=== PATIENT | female | born 1970 | race Caucasian/White ===

== ENCOUNTER → 2016-09-07 | Outpatient (CLI) | payer BC ==
[~2016-09-07] MED LIST: BCPILLS PO; CALC500C3 PO; FLUC150T PO; OXYC-57 PO
== END | disposition home or self-care (01) ==
LOC: C.PAPS 08:14
PROVIDERS: ATTEND Obstetrics & Gynecology
DX: Z01.419 Encounter for gynecological examination (general) (routine) without abnormal findings (principal)

== ENCOUNTER → 2018-03-25 | Outpatient (CLI) | payer OTHER ==
[~2018-03-25] MED LIST changes: -OXYC-57 PO
--- NOTE | 2018-03-25 15:20 | MAMMOGRAPHY REPORT ---
BILATERAL DIGITAL SCREENING MAMMOGRAM TOMOSYNTHESIS WITH CAD: 03/25/2018 CLINICAL HISTORY: Routine screening. TECHNIQUE: The study was acquired using full field digital technology and interpreted from soft copy. Breast tomosynthesis in addition to standard 2D mammography was performed. Current study was also ev aluated with a Computer Aided Detection (CAD) system. COMPARISON: Comparison is made to exams dated: 01/13/2016 mammogram, 10/18/2014 mammogram, and 04/14/20 12 mammogram - [facility]. BREAST COMPOSITION: The tissue of both breasts is extremely dense, which lowers the sensitivity of ma mmography. FINDINGS: The parenchymal pattern is unchanged. No developing mass, architectural distortion or cluster of susp icious microcalcifications is seen in either breast. IMPRESSION: ACR BI-RADS CATEGORY 2: BENIGN There is no mammographic evidence of malignancy. A 1 year screening mammogram is recommended.( [id number]) The patient will receive written notification of the results. Some breast cancers are not detected with mammography. A negative mammographic report should not rosalinda y biopsy if a clinically suggestive mass is present. Ramya Hicks M.D. ay/:03/25/2018 14:38:59 Racing Driver: RT Davy(Leonel)(M), [facility] letter sent: Normal 1/2 BI-RADS Code: ACR BI-RADS Category 2: Benign
== END | disposition home or self-care (01) ==
LOC: C.MAMM 13:50
PROVIDERS: ATTEND Internal Medicine
DX: Z12.31 Encounter for screening mammogram for malignant neoplasm of breast (principal)

== ENCOUNTER 2020-02-23 01:02 | Inpatient (IN) ==
[2020-02-23 01:46] LABS: Basophils # (auto) 0.03 K/uL (0-0.2); Basophils % (auto) 0.5 %; Eosinophils # (auto) 0.07 K/uL (0-0.5); Eosinophils % (auto) 1.1 %; Hematocrit (blood only) 34.7 % (37-47); Hemoglobin 10.9 g/dL (12.0-16.0); Immature Granulocytes # (auto) 0.01 K/uL (0.00-0.02); Immature Granulocytes % (auto) 0.2 %; Lymphocytes # (auto) 1.15 K/uL (1.2-3.4); Lymphocytes % (auto) 18.8 %; Mean Corpuscular Hemoglobin 21.3 pg (25-34); Mean Corpuscular Hgb Conc 31.4 g/dL (32-36); Mean Corpuscular Volume 67.8 fL (80-100); Monocytes # (auto) 0.56 K/uL (0.11-0.59); Monocytes % (auto) 9.2 %; Neutrophils % (auto) 70.2 %; Platelet Count 207 K/uL (130-400); RDW Coefficient of Variation 16.2 % (11.5-14.5); RDW Standard Deviation 39.3 fL (36.4-46.3); Red Blood Count 5.12 M/uL (4.2-5.4); White Blood Count 6.12 K/uL (4.8-10.8)
[2020-02-23 02:03] LABS: Appearance Urine Cloudy (Clear); Bacteria Urine Automated Negative (Negative); Blood Urine Negative (Negative); Color Urine Dark Yellow; Glucose Urine UA Negative (Negative); Ketones Urine Negative (Negative); Leukocyte Esterase Urine Negative (Negative); Nitrite Urine Negative (Negative); Protein Urine Negative (Negative); Specific Gravity Urine 1.016 (1.000-1.030); Urobilinogen Urine Negative (Negative); pH Urine 7.5 (4.5-7.5)
[2020-02-23 02:06] LABS: Albumin Level 3.8 gm/dl (3.4-5.0); BUN Creatinine Ratio 22.7 (10-20); Calcium 8.7 mg/dl (8.5-10.1); Creatinine Clr Calc Pharmacy 85.2 ml/min; Est GFR (African American) 118.5; Est GFR (Non-African American) 102.2; Potassium 3.9 mmol/L (3.5-5.1)
[2020-02-23] MEDS ORDERED: MoRPHine SULFATE 4 MG/ML 1 ML CARP\\VIAL IV STA (02:09)
[2020-02-23] MEDS ORDERED: ONDANSETRON INJ 2 MG/ML 2 ML VIAL IV STA (02:09)
[2020-02-23 02:14] LABS: Albumin Globulin Ratio 1.1 (0.9-2); Bilirubin,Total 3.6 mg/dl (0.2-1); Globulin 3.5 gm/dl (2.5-4.0); Total Protein 7.3 gm/dl (6.4-8.2)
[2020-02-23 02:16] LABS: Hypochromasia Present; Microcytosis Present; Ovalocytes 1+
[2020-02-23 02:18] LABS: Bilirubin Urine 1+ (Negative); Ictotest Urine Positive (Negative)
[2020-02-23 02:20] LABS: Amorphous Sediment Urine Present (None Prsent); RBC Urine Automated 0-4 /hpf (0-4)
--- NOTE | 2020-02-23 03:29 | History & Physical Report ---
Date of Service February 23, 2020 Assessment & Plan (1) Epigastric abdominal pain: 49 yo F with hx cholecystectomy admitted for worsening abdominal pain x2 days. 1) RUQ/Epigastric abdominal pain - Transaminitis on CMP: AST 1598, ALT 2007, Alk [id number] - RUQ US: fatty liver infiltration, bile duct dilation to 1.2 cm, no choledocholithiasis - MRCP pending - WBC WNL - consider surgical consult depending on findings of MRCP 2) Transaminitis - Hepatitis panel ordered; no hx blood transfusions, IVDU - PT/INR to evaluate liver function - NAFLD? Pt denies alcohol hx or frequent use - total bilirubin 3.6 - lipase WNL DVT ppx: not indicated FEN/GI: NPO, sips with meds Code Status: Full Code Dispo: Med/Surg (2) Thalassemia minor: (3) Transaminitis: (4) RUQ abdominal pain: History of Present Illness 49 yo healthy F with hx cholecystectomy presenting to ED with RUQ abdominal pain x 2 days. Describes the pain as sharp and stabbing, similar to what her gallstone attacks felt like with radiation to her back. Pain starts after eating a meal, though unsure at what interval after eating. She has also been nauseous, had decreased appetite though no episodes of vomiting. Denies constipation, diarrhea. Denies any new medications, exposures. Used 3 ibuprofen to try to control pain, no tylenol use. Denies family history of autoimmune disorders. Primary Care Provider: Niecy Aldridge MD Allergies Allergy/AdvReac Type Severity Reaction Status Date / Time No Known Drug Allergies Allergy Unknown Verified 02/23/20 01:26 Home Medications Home Medications Medication Instructions Recorded Confirmed Type multivitamin 1 cap PO DAILY #30 cap 02/09/19 02/23/20 Rx Past Med/Surg History Medical History Thalassemia minor (Acute) Surgical History Hx of cholecystectomy Social History Preferred Language: Bengali Communication Ability: Effective Food Porter Required: No Beliefs That Will Affect Care: None Current Living Situation: Spouse Other Information That Helps Us Care for You: No Feels Safe at Home: Yes Safety Concerns: Feels Safe At This Time Smoking Status: Never smoker Do You Dip or Chew Tobacco: No ; Second Hand Exposure: No ; Tobacco Cessation Education Requested by Patient: No Hx Alcohol Use: Yes Alcohol type: wine Hx Substance Use: No Review of Systems Constitutional: no fever, no chills, no body aches and no fatigue Respiratory: no cough and no dyspnea Cardiovascular: no chest pain, no dyspnea and no edema Gastrointestinal: + abdominal pain, + bloating, + early satiety and + nausea; no vomiting, no constipation and no diarrhea/loose stools Genitourinary: no dysuria Physical Exam Constitutional: cooperative; no acute distress and not ill appearing Neck: normal visual inspection Respiratory: normal respiratory effort and able to speak in complete sentences; no respiratory distress, no labored breathing, no retractions, no cough and no audible wheezes Auscultation: lungs clear to auscultation bilaterally; no crackles, no rales, no rhonchi and no wheezes Cardiovascular: Rate/Rhythm: regular rate and regular rhythm Heart Sounds: normal S1 and normal S2; no gallop, no murmur and no cardiac rub Vessels: posterior tibial pulses present Extremities: no pedal edema and no edema Gastrointestinal (Abdomen): Inspection/Auscultation: abdomen normal to inspection and normal bowel sounds; abdomen not distended Percussion/Palpation: + abdomen tender and abdomen soft; no guarding, abdomen not rigid and no abdominal mass tender to palpation of epigastric, RUQ and RLQ regions. Indicates epigastric as most painful region. Results & Data Results & Data ([facility]) Vital Signs (Past 12 Hours) Vital Signs Temp Pulse Pulse Resp BP BP Pulse Ox 02/23/20 02:20 51 L 18 134/59 L 99 02/23/20 01:06 36.9 C 63 16 137/77 95 Laboratory Results WBC 6.12 K/uL (4.8-10.8) 02/23/20 01:25 RBC 5.12 M/uL (4.2-5.4) 02/23/20 01:25 Hgb 10.9 g/dL (12.0-16.0) L 02/23/20 01:25 Hct 34.7 % (37-47) L 02/23/20 01:25 MCV 67.8 fL (80-100) L 02/23/20 01:25 MCH 21.3 pg (25-34) L 02/23/20 01:25 MCHC 31.4 g/dL (32-36) L 02/23/20 01:25 RDW Std Deviation 39.3 fL (36.4-46.3) 02/23/20 01:25 RDW Coeff of Chris 16.2 % (11.5-14.5) H 02/23/20 01:25 Plt Count 207 K/uL (130-400) 02/23/20 01:25 Immature Gran % (Auto) 0.2 % 02/23/20 01:25 Neut % (Auto) 70.2 % 02/23/20 01:25 Lymph % (Auto) 18.8 % 02/23/20 01:25 [place] % (Auto) 9.2 % 02/23/20 01:25 Eos % (Auto) 1.1 % 02/23/20 01:25 Baso % (Auto) 0.5 % 02/23/20 01:25 Neut # (Auto) 4.30 K/uL (1.4-6.5) 02/23/20 01:25 Lymph # (Auto) 1.15 K/uL (1.2-3.4) L 02/23/20 01:25 [place] # (Auto) 0.56 K/uL (0.11-0.59) 02/23/20 01:25 Eos # (Auto) 0.07 K/uL (0-0.5) 02/23/20 01:25 Baso # (Auto) 0.03 K/uL (0-0.2) 02/23/20 01:25 Immature Gran # (Auto) 0.01 K/uL (0.00-0.02) 02/23/20 01:25 Hypochromasia Present 02/23/20 01:25 Microcytosis Present 02/23/20 01:25 Ovalocytes 1+ 02/23/20 01:25 Sodium 139 mmol/L (136-145) 02/23/20 01:25 Potassium 3.9 mmol/L (3.5-5.1) 02/23/20 01:25 Chloride 110 mmol/L (98-107) H 02/23/20 01:25 Carbon Dioxide 26 mmol/L (21-32) 02/23/20 01:25 Anion Gap 3.0 (3-11) 02/23/20 01:25 BUN 16 mg/dl (7-18) 02/23/20 01:25 Creatinine 0.69 mg/dl (0.6-1.2) 02/23/20 01:25 Est Cr Clr Drug Dosing 85.2 ml/min 02/23/20 01:25 Est GFR ( Amer) 118.5 02/23/20 01:25 Est GFR (Non-Af Amer) 102.2 02/23/20 01:25 BUN/Creatinine Ratio 22.7 (10-20) H 02/23/20 01:25 Glucose 100 mg/dl (70-99) H 02/23/20 01:25 Calcium 8.7 mg/dl (8.5-10.1) 02/23/20 01:25 Total Bilirubin 3.6 mg/dl (0.2-1) H 02/23/20 01:25 AST 1598 U/L (15-37) H 02/23/20 01:25 ALT 2007 U/L (12-78) H 02/23/20 01:25 Alkaline Phosphatase 142 U/L (45-117) H 02/23/20 01:25 Total Protein 7.3 gm/dl (6.4-8.2) 02/23/20 01:25 Albumin 3.8 gm/dl (3.4-5.0) 02/23/20 01:25 Globulin 3.5 gm/dl (2.5-4.0) 02/23/20 01:25 Albumin/Globulin Ratio 1.1 (0.9-2) 02/23/20 01:25 Lipase 140 U/L (73-393) 02/23/20 01:25 Urine Color Dark Yellow 02/23/20 01:25 Urine Appearance Cloudy (Clear) A 02/23/20 01:25 Urine pH 7.5 (4.5-7.5) 02/23/20 01:25 Ur Specific [place] 1.016 (1.000-1.030) 02/23/20 01:25 Urine Protein Negative (Negative) 02/23/20 01:25 Urine Glucose (UA) Negative (Negative) 02/23/20 01:25 Urine Ketones Negative (Negative) 02/23/20 01:25 Urine Blood Negative (Negative) 02/23/20 01:25 Urine Nitrite Negative (Negative) 02/23/20 01:25 Urine Bilirubin 1+ (Negative) H 02/23/20 01:25 Urine Urobilinogen Negative (Negative) 02/23/20 01:25 Ur Leukocyte Esterase Negative (Negative) 02/23/20 01:25 Urine WBC (Auto) 1-5 /hpf (0-5) 02/23/20 01:25 Urine RBC (Auto) 0-4 /hpf (0-4) 02/23/20 01:25 U Hyaline Cast (Auto) 1-5 /lpf (0-5) 02/23/20 01:25 U Epithel Cells (Auto) 10-20 /lpf (0-5) H 02/23/20 01:25 Urine Bacteria (Auto) Negative (Negative) 02/23/20 01:25 Amorphous Sediment Present (None Prsent) A 02/23/20 01:25 POC Ur Test NEG (NEG) 02/23/20 02:17 Supervising Physician Co-Signing Physician Notes Attending addendum: I have physically seen this patient, have supervised the medical residents activities, and agree with the H&P unless as otherwise noted. Assessment and Plan: Choledocholithiasis/abnormal LFTs- MRCP consistent with common bile duct stone. NPO NSS + KCl 20 mEq at 100 mils per hour Zosyn 4.5 g IV every 8 hours Zofran 4 mg IV every 6 hours PRN Famotidine 20 mg IV every 12 hours Follow serial laboratories Morphine sulfate 4 mg IV every 4 hours as needed severe pain Consult gastroenterology Remainder of orders and notations as noted Resident Activity Tracking Resident Involvement: Resident Care Provided Care Provided: Adult [facility]
[2020-02-23] MEDS ORDERED: MAGNESIUM HYDROXIDE SUSP 30 ML UDC PO PRN (05:03)
[2020-02-23] MEDS ORDERED: ONDANSETRON INJ 2 MG/ML 2 ML VIAL IV PRN ×2 (05:03→14:33)
[2020-02-23] MEDS ORDERED: IBUPROFEN 600 MG TAB PO PRN (05:03)
[2020-02-23] MEDS ORDERED: ALUMINUM/MAGNESIUM SUSP 30 ML UDC PO PRN (05:03)
[2020-02-23] MEDS ORDERED: POLYETHYLENE (MIRALAX) 17 GM PACK PO PRN (05:03)
[2020-02-23 05:44] LABS: INR 1.1 (0.9-1.1); Prothrombin Time 11.4 Seconds (9.0-12.0)
[2020-02-23] MEDS ORDERED: PIPERACILL/TAZOBAC CONSULT ACTIVE PRN (06:08)
[2020-02-23] MEDS ORDERED: MoRPHine SULFATE 2 MG/ML CARP IV PRN (06:13)
[2020-02-23] MEDS ORDERED: PIPERACILLIN/TAZOBACTAM 4.5 GM/120 ML BAG IV STA (06:19)
[2020-02-23] MEDS: NSS + 20MEQ KCL 20 MEQ/1,000 ML BAG IV SCH ×2 (06:28→17:27)
--- NOTE | 2020-02-23 06:35 | Ultrasound Report ---
ABDOMINAL ULTRASOUND, RIGHT UPPER QUADRANT HISTORY: RUQ pain, cholecystectomy. COMPARISON: Right quadrant ultrasound August 15, 2016. MRCP August 16, 2016. FINDINGS: Liver morphology is normal. There is mild biliary ductal dilatation status post cholecystec huber. Common bile duct measures 8 mm in caliber. No choledocholithiasis identified by sonography. The gallbladder is surgically absent. Pancreas is sonographically normal. There is no right hydronephros is. IMPRESSION: Mild biliary ductal dilatation status post cholecystectomy. ACT 112: Negative or not required by law. Electronically signed by: Israel Campos M.D. 02/23/2020 6:34 AM
--- NOTE | 2020-02-23 06:42 | Magnetic Resonance Report ---
MRCP CLINICAL HISTORY: RUQ pain, LFT elevation TECHNIQUE: Utilizing a 1.5 Susannah magnet and dedicated coil, multiplanar, multiecho imaging of the upp er abdomen was performed utilizing heavily T2 weighted pulsing sequences without IV contrast. COMPARISON STUDY: MRCP August 16, 2016. Right upper quadrant ultrasound February 23, 2020. FINDINGS: There is mild intra and extrahepatic biliary ductal dilatation. The common bile duct measur es 7 mm in caliber status post cholecystectomy. Note is made of a 3 mm T2 hypointense filling defect within the distal common bile duct consistent with a calculus. No additional common bile duct calculi are identified. There is no fluid collection within the cholecystectomy bed. A 1.7 cm T2 hyperintens e segment 6 hepatic lesion is unchanged since MRCP of August 16, 2016. There are no additional hepa tic lesions. Unenhanced images of the spleen, adrenal glands, kidneys and pancreas are normal. There is no pancreatic ductal dilatation. There is no peripancreatic infiltration or fluid. No abdominal ad enopathy is present. There are trace bilateral pleural effusions. IMPRESSION: 1. Mild biliary ductal dilatation status post cholecystectomy. 3 mm filling defect within the distal common bile duct consistent with a common bile duct calculus. 2. No change in a 1.7 cm right hepatic lobe lesion since MRCP of August 16, 2016. This is benign an d favors a hemangioma. ACT 112: Negative or not required by law. Electronically signed by: Israel Campos M.D. 02/23/2020 6:40 AM
--- NOTE | 2020-02-23 07:16 | Emergency Department Note ---
History of Present Illness General Chief complaint: Abdominal Pain Stated complaint: SEVERE STOMACH AND BACK PAIN Time Seen by Provider: 02/23/20 01:41 Source: patient Mode of arrival: ambulatory Limitations: no limitations History of Present Illness Maximum Pain Intensity: 0 This patient is a 49-year-old female who presents to the emergency department for evaluation of abdominal pain. Patient reports that she has been having pain in her right upper abdomen with radiation into the back. She has been having episodes of pain for the past 2 days. She reports that the first episode of pain yesterday morning. She had associated nausea and diaphoresis with that. She reports it felt like when she had gallbladder attacks. She states that the pain was gone after 15 minutes. She reports she had additional episodes of pain in the afternoon, evening and yesterday afternoon. She states that her current episode of pain started 4 hours prior to arrival. She is still having pain now. She is nauseous but has not been vomiting. She states the pain is sharp and rates her discomfort a 9/10. Patient had a cholecystectomy 3 years ago, but compares this pain to the pain she had with her gallbladder attacks. She has tried Mylanta and Tylenol without relief. She denies urinary symptoms, fever or changes in bowel movements. She does report a history of thalassemia minor. She drinks alcohol rarely and denies any recent alcohol consumption. Home Medications Home Medications Medication Instructions Recorded Confirmed Type multivitamin 1 cap PO DAILY #30 cap 02/09/19 02/23/20 Rx Allergies Allergy/AdvReac Type Severity Reaction Status Date / Time No Known Drug Allergies Allergy Unknown Verified 02/23/20 01:26 Past Med/Surg History Medical History Thalassemia minor (Acute) Surgical History Hx of cholecystectomy Social History Preferred Language: Uzbek Feels Safe at Home: Yes Smoking Status: Never smoker Review of Systems A total of 10 systems reviewed and were otherwise negative Physical Exam Vital Signs Vital Signs - 24 hr 02/23/20 01:06 02/23/20 02:20 Temperature 36.9 C Temperature Source Oral Pulse Rate 63 Pulse Rate [Apical] 51 L Respiratory Rate 16 18 Respiratory Effort / Characteristics Non-Labored Respiratory Depth Normal Blood Pressure 137/77 Blood Pressure [Left Arm] 134/59 L Blood Pressure Mean 97 Blood Pressure Mean [Left Arm] 84 Pulse Oximetry 95 99 Oxygen Delivery Method Room Air Room Air Sepsis Recent Fever Within 48 Hours No Sepsis New/Unexplained Change in Mental Status No Sepsis Action Taken by Nursing No Action Required VITALS: Vitals are noted on the nurse's note and reviewed by myself. Vital signs stable. GENERAL: This is a 49-year-old female, in moderate distress, tearful, well- developed well-nourished. SKIN: The skin was without rashes. EARS: External auditory canals clear, tympanic membranes pearly jones without erythema or effusion bilaterally. EYES: Pupils equal round and reactive to light and accommodation. No scleral icterus. MOUTH: Mucous membranes moist. Tonsils are not enlarged. Pharynx without erythema or exudate. NECK: Supple without nuchal rigidity. No lymphadenopathy. HEART: Regular rate and rhythm without murmurs gallops or rubs. LUNGS: Clear to auscultation bilaterally without wheezes, rales or rhonchi. No retractions or accessory muscle use. ABDOMEN: Positive bowel sounds x 4. Soft, significant tenderness to palpation in the right upper quadrant with guarding. NEURO: Patient was alert and oriented to person place and time. Course Administered Medications Potassium Chloride/Sodium Chloride (Normal Saline W/20 Meq Kcl) 20 meq in 1,000 mls @ 100 mls/hr IV .Q10H CONSTANTIN Stop: 03/24/20 06:29 Last Admin: 02/23/20 06:28 Dose: 100 mls/hr Documented by: [id number] Discontinued Medications Piperacillin Sod/Tazobactam Sod (Zosyn) 4.5 gm in 120 mls @ 240 mls/hr IV ONE STA; Protocol Stop: 02/23/20 06:48 Last Admin: 02/23/20 06:29 Dose: 240 mls/hr Documented by: [id number] Morphine Sulfate (Morphine Sulfate) 4 mg IV NOW STA Stop: 02/23/20 02:10 Last Admin: 02/23/20 02:20 Dose: 4 mg Documented by: [id number] Ondansetron HCl (Zofran) 4 mg IV NOW STA Stop: 02/23/20 02:10 Last Admin: 02/23/20 02:20 Dose: 4 mg Documented by: [id number] Medical Decision Making Differential Diagnosis Differential diagnosis includes appendicitis, diverticulitis, bowel obstruction, inflammatory bowel disease, renal colic, PUD, biliary pathology, pancreatitis, mesenteric ischemia, aortic pathology, infection, genitourinary, UTI, perforated viscus, among others. Medical Records Attestation: I reviewed the patient's medical records. Home Medications Current Medication List: was personally reviewed by me Laboratory Data Attestation: I reviewed the patient's lab results. Result diagrams: 02/23/20 01:25 02/23/20 01:25 Lab Results 02/23/20 02/23/20 02/23/20 Range/Units 01:25 01:25 01:25 WBC 6.12 (4.8-10.8) K/uL RBC 5.12 (4.2-5.4) M/uL Hgb 10.9 L (12.0-16.0) g/dL Hct 34.7 L (37-47) % MCV 67.8 L (80-100) fL MCH 21.3 L (25-34) pg MCHC 31.4 L (32-36) g/dL RDW Std Deviation 39.3 (36.4-46.3) fL RDW Coeff of Chris 16.2 H (11.5-14.5) % Plt Count 207 (130-400) K/uL Immature Gran % (Auto) 0.2 % Neut % (Auto) 70.2 % Lymph % (Auto) 18.8 % [place] % (Auto) 9.2 % Eos % (Auto) 1.1 % Baso % (Auto) 0.5 % Neut # (Auto) 4.30 (1.4-6.5) K/uL Lymph # (Auto) 1.15 L (1.2-3.4) K/uL [place] # (Auto) 0.56 (0.11-0.59) K/uL Eos # (Auto) 0.07 (0-0.5) K/uL Baso # (Auto) 0.03 (0-0.2) K/uL Immature Gran # (Auto) 0.01 (0.00-0.02) K/uL Hypochromasia Present Microcytosis Present Ovalocytes 1+ PT (9.0-12.0) Seconds INR (0.9-1.1) Sodium 139 (136-145) mmol/L Potassium 3.9 (3.5-5.1) mmol/L Chloride 110 H (98-107) mmol/L Carbon Dioxide 26 (21-32) mmol/L Anion Gap 3.0 (3-11) BUN 16 (7-18) mg/dl Creatinine 0.69 (0.6-1.2) mg/dl Est Cr Clr Drug Dosing 85.2 ml/min Est GFR ( Amer) 118.5 Est GFR (Non-Af Amer) 102.2 BUN/Creatinine Ratio 22.7 H (10-20) Glucose 100 H (70-99) mg/dl Calcium 8.7 (8.5-10.1) mg/dl Total Bilirubin 3.6 H (0.2-1) mg/dl AST 1598 H (15-37) U/L ALT 2007 H (12-78) U/L Alkaline Phosphatase 142 H (45-117) U/L Total Protein 7.3 (6.4-8.2) gm/dl Albumin 3.8 (3.4-5.0) gm/dl Globulin 3.5 (2.5-4.0) gm/dl Albumin/Globulin Ratio 1.1 (0.9-2) Lipase 140 (73-393) U/L Urine Color Dark Yellow Urine Appearance Cloudy A (Clear) Urine pH 7.5 (4.5-7.5) Ur Specific [place] 1.016 (1.000-1.030) Urine Protein Negative (Negative) Urine Glucose (UA) Negative (Negative) Urine Ketones Negative (Negative) Urine Blood Negative (Negative) Urine Nitrite Negative (Negative) Urine Bilirubin 1+ H (Negative) Urine Urobilinogen Negative (Negative) Ur Leukocyte Esterase Negative (Negative) Urine WBC (Auto) 1-5 (0-5) /hpf Urine RBC (Auto) 0-4 (0-4) /hpf U Hyaline Cast (Auto) 1-5 (0-5) /lpf U Epithel Cells (Auto) 10-20 H (0-5) /lpf Urine Bacteria (Auto) Negative (Negative) Amorphous Sediment Present A (None Prsent) POC Ur Test (NEG) 02/23/20 02/23/20 Range/Units 01:25 02:17 WBC (4.8-10.8) K/uL RBC (4.2-5.4) M/uL Hgb (12.0-16.0) g/dL Hct (37-47) % MCV (80-100) fL MCH (25-34) pg MCHC (32-36) g/dL RDW Std Deviation (36.4-46.3) fL RDW Coeff of Chris (11.5-14.5) % Plt Count (130-400) K/uL Immature Gran % (Auto) % Neut % (Auto) % Lymph % (Auto) % [place] % (Auto) % Eos % (Auto) % Baso % (Auto) % Neut # (Auto) (1.4-6.5) K/uL Lymph # (Auto) (1.2-3.4) K/uL [place] # (Auto) (0.11-0.59) K/uL Eos # (Auto) (0-0.5) K/uL Baso # (Auto) (0-0.2) K/uL Immature Gran # (Auto) (0.00-0.02) K/uL Hypochromasia Microcytosis Ovalocytes PT 11.4 (9.0-12.0) Seconds INR 1.1 (0.9-1.1) Sodium (136-145) mmol/L Potassium (3.5-5.1) mmol/L Chloride (98-107) mmol/L Carbon Dioxide (21-32) mmol/L Anion Gap (3-11) BUN (7-18) mg/dl Creatinine (0.6-1.2) mg/dl Est Cr Clr Drug Dosing ml/min Est GFR ( Amer) Est GFR (Non-Af Amer) BUN/Creatinine Ratio (10-20) Glucose (70-99) mg/dl Calcium (8.5-10.1) mg/dl Total Bilirubin (0.2-1) mg/dl AST (15-37) U/L ALT (12-78) U/L Alkaline Phosphatase (45-117) U/L Total Protein (6.4-8.2) gm/dl Albumin (3.4-5.0) gm/dl Globulin (2.5-4.0) gm/dl Albumin/Globulin Ratio (0.9-2) Lipase (73-393) U/L Urine Color Urine Appearance (Clear) Urine pH (4.5-7.5) Ur Specific [place] (1.000-1.030) Urine Protein (Negative) Urine Glucose (UA) (Negative) Urine Ketones (Negative) Urine Blood (Negative) Urine Nitrite (Negative) Urine Bilirubin (Negative) Urine Urobilinogen (Negative) Ur Leukocyte Esterase (Negative) Urine WBC (Auto) (0-5) /hpf Urine RBC (Auto) (0-4) /hpf U Hyaline Cast (Auto) (0-5) /lpf U Epithel Cells (Auto) (0-5) /lpf Urine Bacteria (Auto) (Negative) Amorphous Sediment (None Prsent) POC Ur Test NEG (NEG) Imaging Data Attestation: I personally reviewed and interpreted this imaging study as follows: Radiologist's Impression: US ABDOMEN LIMITED: The visualized portion of the pancreas appears normal. The liver is upper normal in size measuring 17.5 cm with mildly echogenic parenchyma suggesting mild fatty infiltration. No focal liver lesion is seen. The portal vein is patent with normal direction of flow. The common bile duct is mildly dilated measuring 1.2 cm postcholecystectomy. No choledocholithiasis is identified. The right kidney measures 11.1 cm with no hydronephrosis. Radiologist: Leroy Lawson MD Blood Pressure Blood Pressure Findings: Normal blood pressure Blood Pressure Disposition: did not require urgent referral MDM Narrative Continuous monitor technician: Order was placed for continuous monitor technician. Patient was placed on the monitor technician. Patient was noted to be in normal sinus rhythm at an initial rate of 76 bpm. The patient is a 49-year-old female who presents today complaining of right upper quadrant abdominal pain. Labs revealed no leukocytosis. Patient is anemic with hemoglobin 10.9, hematocrit 34.7. LFTs are significantly elevated, with AST 1598, ALT 2007, and alkaline phosphatase 142. Bilirubin is elevated at 3.6. Ultrasound was performed and shows mild dilatation of the common bile duct. Patient's labs are suggestive of an obstructive process. Patient will need further evaluation and MRCP for evaluation of choledocholithiasis. The case was discussed with Dr. Pedro, who agreed to evaluate the patient for further care. Impression & Plan Right upper quadrant abdominal pain, Elevated LFTs Discharge Plan Visit Data Chief Complaint: Abdominal Pain Stated Complaint: SEVERE STOMACH AND BACK PAIN ED Provider: Mary Lawson ED Midlevel Provider: Kanika Levin Discharge Problem: Right upper quadrant abdominal pain, Elevated LFTs
[2020-02-23 07:48] LABS: Basophils # (auto) 0.03 K/uL (0-0.2); Basophils % (auto) 0.7 %; Eosinophils # (auto) 0.08 K/uL (0-0.5); Eosinophils % (auto) 1.8 %; Hematocrit (blood only) 33.8 % (37-47); Hemoglobin 10.4 g/dL (12.0-16.0); Immature Granulocytes # (auto) 0.01 K/uL (0.00-0.02); Immature Granulocytes % (auto) 0.2 %; Lymphocytes # (auto) 1.23 K/uL (1.2-3.4); Lymphocytes % (auto) 27.3 %; Mean Corpuscular Hemoglobin 20.9 pg (25-34); Mean Corpuscular Hgb Conc 30.8 g/dL (32-36); Monocytes % (auto) 11.1 %; Neutrophils # (auto) 2.66 K/uL (1.4-6.5); Neutrophils % (auto) 58.9 %; Platelet Count 189 K/uL (130-400); RDW Coefficient of Variation 16.4 % (11.5-14.5); RDW Standard Deviation 39.6 fL (36.4-46.3); Red Blood Count 4.97 M/uL (4.2-5.4); White Blood Count 4.51 K/uL (4.8-10.8)
[2020-02-23 08:01] LABS: Partial Thromboplastin Ratio 0.9; Partial Thromboplastin Time 25.8 Seconds (21.0-31.0)
[2020-02-23 08:13] LABS: Basophilic Stippling 1+; Microcytosis Present; Poikilocytosis Present; Polychromasia 1+
[2020-02-23 08:21] LABS: Albumin Level 3.4 gm/dl (3.4-5.0); BUN Creatinine Ratio 20.7 (10-20); Calcium 8.7 mg/dl (8.5-10.1); Creatinine Clr Calc Pharmacy 101.3 ml/min; Est GFR (African American) 125.4; Est GFR (Non-African American) 108.2
[2020-02-23 08:34] LABS: Albumin Globulin Ratio 1.1 (0.9-2); Bilirubin,Total 4.7 mg/dl (0.2-1); Globulin 3.2 gm/dl (2.5-4.0); Total Protein 6.6 gm/dl (6.4-8.2)
[2020-02-23] MEDS ORDERED: MULTIVITAMIN TAB PO SCH (09:00)
[2020-02-23] MEDS ORDERED: FAMOTIDINE 20MG/5ML IV PUSH IV ONE (09:15)
[2020-02-23] MEDS: FAMOTIDINE 20 MG in SYRINGE 3 ML IV SCH ×2 (09:16→21:05)
[2020-02-23] MEDS ORDERED: PIPERACILLIN/TAZOBACTAM 3.375 GM in DEXTROSE 5% 100 ML IV ONE (11:00)
[2020-02-23 11:18] LABS: Hepatitis B Surface Antigen Neg (Neg)
--- NOTE | 2020-02-23 11:41 | Electrocardiogram Report ---
Test Reason : Blood Pressure : / mmHG Vent. Rate : 049 BPM Atrial Rate : 049 BPM P-R Int : 136 ms QRS Dur : 108 ms QT Int : 408 ms P-R-T Axes : 010 034 033 degrees QTc Int : 368 ms Sinus bradycardia Incomplete right bundle branch block Borderline ECG When compared with ECG of 15-AUG-2016 20:14, No significant change was found Confirmed by Guerrero Garcia ([id number]) on 02/23/2020 11:41:10 AM Referred By: REFERRED SELF Confirmed By:Guerrero Garcia
[2020-02-23 11:44] LABS: Hepatitis C IgG 13Yrs+Old_Rflx Neg (Neg)
[2020-02-23] MEDS ORDERED: MIDAZOLAM HCL 1 MG/ML 2ML VIAL ONE (13:32)
[2020-02-23] MEDS ORDERED: PROPOFOL IV EMULSION 10 MG/ML 20 ML VIAL IV ONE (13:32)
[2020-02-23] MEDS ORDERED: LIDOCAINE HCL 2% 2 ML VIAL/AMP(20MG/ML) INFIL ONE (13:32)
[2020-02-23] MEDS ORDERED: fentaNYL citrate 100 MCG/2 ML VIAL ONE (13:32)
--- NOTE | 2020-02-23 14:07 | Hospitalist Progress Note ---
Date of Service February 23, 2020 Assessment & Plan (1) Epigastric abdominal pain: 49 yo F with hx cholecystectomy admitted for worsening abdominal pain x2 days. RUQ/Epigastric abdominal pain: - RUQ US: fatty liver infiltration, bile duct dilation to 1.2 cm, no choledoc holithiasis - MRCP demonstrated 3mm filling defect consistent with common bile duct calculus - GI consulted: ERCP demonstrated normal appearing major papilla, normal cholangiogram; performed biliary sphincterotomy - continue IV Zosyn Transaminitis: - no hx blood transfusions, IVDU - Transaminitis on admission: AST 1598, ALT 2007, Alk phos 142; lipase 140 - on recheck this AM: AST 1424, ALT 2075, Alk phos 137; lipase 71 - total bilirubin 3.6 on admission, 4.7 this AM - CMP in AM - Hepatitis B antigen negative, Hepatitis C negative; Hepatitis A IgM pending Diet: Clears, advance diet as tolerated DVT ppx: held at this time, ambulation as tolerated Code Status: Full Code (2) Transaminitis: Admission and Anticipated Discharge Date Admission Date: February 23, 2020 Supervising Physician Co-Signing Physician Notes Resident Physician Supervision Note: I independently interviewed and examined the patient and verified the villanueva history and physical, reviewed labs and image studies, discussed the case with the resident Dr. Malloy and agree with the findings and care plan. Subjective Patient overnight had no continued abdominal pain following receiving pain medications last night. Currently denies feelings of nausea/vomiting/fatigue/malaise. Review of Systems Review of Systems: All systems reviewed & are unremarkable except as noted in Subjective Physical Exam Constitutional: WD/WN, vitals as above Eyes: PERRL, conjunctivae normal, anicteric sclerae Respiratory: normal respiratory effort, lungs clear to auscultation Cardiovascular: Rate/Rhythm: regular rate and regular rhythm Heart Sounds: normal S1 and normal S2; no gallop, no murmur and no cardiac rub Vessels: no JVD Gastrointestinal (Abdomen): normal bowel sounds, soft, nontender, no hepatosplenomegaly Musculoskeletal: no cyanosis or clubbing, extremities motor strength 5/5 Skin: no jaundice Psychiatric: A+Ox3, euthymic affect Results & Data Results & Data ([facility]) Vital Signs (Past 12 Hours) Vital Signs Temp Pulse Resp BP Pulse Ox 02/22/ 13:00 45 L 20 90/74 L 98 06/30/20 11:00 51 L 17 110/59 L 99 02/23/20 07:28 36.4 C L 47 L 18 96/53 L 100 02/23/20 07:00 43 L 18 96/53 L 98 02/23/20 05:02 112/70 02/23/20 02:20 51 L 18 134/59 L 99 Laboratory Results 02/23/20 02/23/20 02/23/20 Range/Units 07:37 07:37 07:37 WBC 4.51 L (4.8-10.8) K/uL RBC 4.97 (4.2-5.4) M/uL Hgb 10.4 L (12.0-16.0) g/dL Hct 33.8 L (37-47) % MCV 68.0 L (80-100) fL MCH 20.9 L (25-34) pg MCHC 30.8 L (32-36) g/dL RDW Std Deviation 39.6 (36.4-46.3) fL RDW Coeff of Chris 16.4 H (11.5-14.5) % Plt Count 189 (130-400) K/uL Immature Gran % (Auto) 0.2 % Neut % (Auto) 58.9 % Lymph % (Auto) 27.3 % [place] % (Auto) 11.1 % Eos % (Auto) 1.8 % Baso % (Auto) 0.7 % Neut # (Auto) 2.66 (1.4-6.5) K/uL Lymph # (Auto) 1.23 (1.2-3.4) K/uL [place] # (Auto) 0.50 (0.11-0.59) K/uL Eos # (Auto) 0.08 (0-0.5) K/uL Baso # (Auto) 0.03 (0-0.2) K/uL Immature Gran # (Auto) 0.01 (0.00-0.02) K/uL Polychromasia 1+ Hypochromasia Poikilocytosis Present Basophilic Stippling 1+ Microcytosis Present Ovalocytes PT (9.0-12.0) Seconds INR (0.9-1.1) APTT 25.8 (21.0-31.0) Seconds PTT Ratio 0.9 Sodium 140 (136-145) mmol/L Potassium 4.0 (3.5-5.1) mmol/L Chloride 110 H (98-107) mmol/L Carbon Dioxide 25 (21-32) mmol/L Anion Gap 5.0 (3-11) BUN 12 (7-18) mg/dl Creatinine 0.58 L (0.6-1.2) mg/dl Est Cr Clr Drug Dosing 101.3 ml/min Est GFR ( Amer) 125.4 Est GFR (Non-Af Amer) 108.2 BUN/Creatinine Ratio 20.7 H (10-20) Glucose 90 (70-99) mg/dl Calcium 8.7 (8.5-10.1) mg/dl Total Bilirubin 4.7 H (0.2-1) mg/dl AST 1424 H (15-37) U/L ALT 2075 H (12-78) U/L Alkaline Phosphatase 137 H (45-117) U/L Total Protein 6.6 (6.4-8.2) gm/dl Albumin 3.4 (3.4-5.0) gm/dl Globulin 3.2 (2.5-4.0) gm/dl Albumin/Globulin Ratio 1.1 (0.9-2) Lipase 71 L (73-393) U/L Urine Color Urine Appearance (Clear) Urine pH (4.5-7.5) Ur Specific Land[place] (1.000-1.030) Urine Protein (Negative) Urine Glucose (UA) (Negative) Urine Ketones (Negative) Urine Blood (Negative) Urine Nitrite (Negative) Urine Bilirubin (Negative) Urine Urobilinogen (Negative) Ur Leukocyte Esterase (Negative) Urine WBC (Auto) (0-5) /hpf Urine RBC (Auto) (0-4) /hpf U Hyaline Cast (Auto) (0-5) /lpf U Epithel Cells (Auto) (0-5) /lpf Urine Bacteria (Auto) (Negative) Amorphous Sediment (None Prsent) POC Ur Test (NEG) Hepatitis A IgM Ab Hep Bs Antigen (Neg) Hep B Core IgM Ab Hepatitis C Antibody (Neg) 02/23/20 02/23/20 02/23/20 Range/Units 02:17 01:28 01:28 WBC (4.8-10.8) K/uL RBC (4.2-5.4) M/uL Hgb (12.0-16.0) g/dL Hct (37-47) % MCV (80-100) fL MCH (25-34) pg MCHC (32-36) g/dL RDW Std Deviation (36.4-46.3) fL RDW Coeff of Chris (11.5-14.5) % Plt Count (130-400) K/uL Immature Gran % (Auto) % Neut % (Auto) % Lymph % (Auto) % [place] % (Auto) % Eos % (Auto) % Baso % (Auto) % Neut # (Auto) (1.4-6.5) K/uL Lymph # (Auto) (1.2-3.4) K/uL [place] # (Auto) (0.11-0.59) K/uL Eos # (Auto) (0-0.5) K/uL Baso # (Auto) (0-0.2) K/uL Immature Gran # (Auto) (0.00-0.02) K/uL Polychromasia Hypochromasia Poikilocytosis Basophilic Stippling Microcytosis Ovalocytes PT (9.0-12.0) Seconds INR (0.9-1.1) APTT (21.0-31.0) Seconds PTT Ratio Sodium (136-145) mmol/L Potassium (3.5-5.1) mmol/L Chloride (98-107) mmol/L Carbon Dioxide (21-32) mmol/L Anion Gap (3-11) BUN (7-18) mg/dl Creatinine (0.6-1.2) mg/dl Est Cr Clr Drug Dosing ml/min Est GFR ( Amer) Est GFR (Non-Af Amer) BUN/Creatinine Ratio (10-20) Glucose (70-99) mg/dl Calcium (8.5-10.1) mg/dl Total Bilirubin (0.2-1) mg/dl AST (15-37) U/L ALT (12-78) U/L Alkaline Phosphatase (45-117) U/L Total Protein (6.4-8.2) gm/dl Albumin (3.4-5.0) gm/dl Globulin (2.5-4.0) gm/dl Albumin/Globulin Ratio (0.9-2) Lipase (73-393) U/L Urine Color Urine Appearance (Clear) Urine pH (4.5-7.5) Ur Specific Land[place] (1.000-1.030) Urine Protein (Negative) Urine Glucose (UA) (Negative) Urine Ketones (Negative) Urine Blood (Negative) Urine Nitrite (Negative) Urine Bilirubin (Negative) Urine Urobilinogen (Negative) Ur Leukocyte Esterase (Negative) Urine WBC (Auto) (0-5) /hpf Urine RBC (Auto) (0-4) /hpf U Hyaline Cast (Auto) (0-5) /lpf U Epithel Cells (Auto) (0-5) /lpf Urine Bacteria (Auto) (Negative) Amorphous Sediment (None Prsent) POC Ur Test NEG (NEG) Hepatitis A IgM Ab Pending Hep Bs Antigen Neg (Neg) Hep B Core IgM Ab Pending Hepatitis C Antibody Neg (Neg) 02/23/20 02/23/20 02/23/20 Range/Units 01:25 01:25 01:25 WBC (4.8-10.8) K/uL RBC (4.2-5.4) M/uL Hgb (12.0-16.0) g/dL Hct (37-47) % MCV (80-100) fL MCH (25-34) pg MCHC (32-36) g/dL RDW Std Deviation (36.4-46.3) fL RDW Coeff of Chris (11.5-14.5) % Plt Count (130-400) K/uL Immature Gran % (Auto) % Neut % (Auto) % Lymph % (Auto) % [place] % (Auto) % Eos % (Auto) % Baso % (Auto) % Neut # (Auto) (1.4-6.5) K/uL Lymph # (Auto) (1.2-3.4) K/uL [place] # (Auto) (0.11-0.59) K/uL Eos # (Auto) (0-0.5) K/uL Baso # (Auto) (0-0.2) K/uL Immature Gran # (Auto) (0.00-0.02) K/uL Polychromasia Hypochromasia Poikilocytosis Basophilic Stippling Microcytosis Ovalocytes PT 11.4 (9.0-12.0) Seconds INR 1.1 (0.9-1.1) APTT (21.0-31.0) Seconds PTT Ratio Sodium 139 (136-145) mmol/L Potassium 3.9 (3.5-5.1) mmol/L Chloride 110 H (98-107) mmol/L Carbon Dioxide 26 (21-32) mmol/L Anion Gap 3.0 (3-11) BUN 16 (7-18) mg/dl Creatinine 0.69 (0.6-1.2) mg/dl Est Cr Clr Drug Dosing 85.2 ml/min Est GFR ( Amer) 118.5 Est GFR (Non-Af Amer) 102.2 BUN/Creatinine Ratio 22.7 H (10-20) Glucose 100 H (70-99) mg/dl Calcium 8.7 (8.5-10.1) mg/dl Total Bilirubin 3.6 H (0.2-1) mg/dl AST 1598 H (15-37) U/L ALT 2007 H (12-78) U/L Alkaline Phosphatase 142 H (45-117) U/L Total Protein 7.3 (6.4-8.2) gm/dl Albumin 3.8 (3.4-5.0) gm/dl Globulin 3.5 (2.5-4.0) gm/dl Albumin/Globulin Ratio 1.1 (0.9-2) Lipase 140 (73-393) U/L Urine Color Dark Yellow Urine Appearance Cloudy A (Clear) Urine pH 7.5 (4.5-7.5) Ur Specific [place] 1.016 (1.000-1.030) Urine Protein Negative (Negative) Urine Glucose (UA) Negative (Negative) Urine Ketones Negative (Negative) Urine Blood Negative (Negative) Urine Nitrite Negative (Negative) Urine Bilirubin 1+ H (Negative) Urine Urobilinogen Negative (Negative) Ur Leukocyte Esterase Negative (Negative) Urine WBC (Auto) 1-5 (0-5) /hpf Urine RBC (Auto) 0-4 (0-4) /hpf U Hyaline Cast (Auto) 1-5 (0-5) /lpf U Epithel Cells (Auto) 10-20 H (0-5) /lpf Urine Bacteria (Auto) Negative (Negative) Amorphous Sediment Present A (None Prsent) POC Ur Test (NEG) Hepatitis A IgM Ab Hep Bs Antigen (Neg) Hep B Core IgM Ab Hepatitis C Antibody (Neg) 02/23/20 Range/Units 01:25 WBC 6.12 (4.8-10.8) K/uL RBC 5.12 (4.2-5.4) M/uL Hgb 10.9 L (12.0-16.0) g/dL Hct 34.7 L (37-47) % MCV 67.8 L (80-100) fL MCH 21.3 L (25-34) pg MCHC 31.4 L (32-36) g/dL RDW Std Deviation 39.3 (36.4-46.3) fL RDW Coeff of Chris 16.2 H (11.5-14.5) % Plt Count 207 (130-400) K/uL Immature Gran % (Auto) 0.2 % Neut % (Auto) 70.2 % Lymph % (Auto) 18.8 % [place] % (Auto) 9.2 % Eos % (Auto) 1.1 % Baso % (Auto) 0.5 % Neut # (Auto) 4.30 (1.4-6.5) K/uL Lymph # (Auto) 1.15 L (1.2-3.4) K/uL [place] # (Auto) 0.56 (0.11-0.59) K/uL Eos # (Auto) 0.07 (0-0.5) K/uL Baso # (Auto) 0.03 (0-0.2) K/uL Immature Gran # (Auto) 0.01 (0.00-0.02) K/uL Polychromasia Hypochromasia Present Poikilocytosis Basophilic Stippling Microcytosis Present Ovalocytes 1+ PT (9.0-12.0) Seconds INR (0.9-1.1) APTT (21.0-31.0) Seconds PTT Ratio Sodium (136-145) mmol/L Potassium (3.5-5.1) mmol/L Chloride (98-107) mmol/L Carbon Dioxide (21-32) mmol/L Anion Gap (3-11) BUN (7-18) mg/dl Creatinine (0.6-1.2) mg/dl Est Cr Clr Drug Dosing ml/min Est GFR ( Amer) Est GFR (Non-Af Amer) BUN/Creatinine Ratio (10-20) Glucose (70-99) mg/dl Calcium (8.5-10.1) mg/dl Total Bilirubin (0.2-1) mg/dl AST (15-37) U/L ALT (12-78) U/L Alkaline Phosphatase (45-117) U/L Total Protein (6.4-8.2) gm/dl Albumin (3.4-5.0) gm/dl Globulin (2.5-4.0) gm/dl Albumin/Globulin Ratio (0.9-2) Lipase (73-393) U/L Urine Color Urine Appearance (Clear) Urine pH (4.5-7.5) Ur Specific [place] (1.000-1.030) Urine Protein (Negative) Urine Glucose (UA) (Negative) Urine Ketones (Negative) Urine Blood (Negative) Urine Nitrite (Negative) Urine Bilirubin (Negative) Urine Urobilinogen (Negative) Ur Leukocyte Esterase (Negative) Urine WBC (Auto) (0-5) /hpf Urine RBC (Auto) (0-4) /hpf U Hyaline Cast (Auto) (0-5) /lpf U Epithel Cells (Auto) (0-5) /lpf Urine Bacteria (Auto) (Negative) Amorphous Sediment (None Prsent) POC Ur Test (NEG) Hepatitis A IgM Ab Hep Bs Antigen (Neg) Hep B Core IgM Ab Hepatitis C Antibody (Neg) Medications Administered Current Inpatient Medications Piperacillin Sod/Tazobactam (Sod 4.5 gm/ Dextrose) 120 mls @ 30 mls/hr IV Q8H CONSTANTIN; Protocol Stop: 03/04/20 11:59 Potassium Chloride/Sodium Chloride (Normal Saline W/20 Meq Kcl) 20 meq in 1,000 mls @ 100 mls/hr IV .Q10H CONSTANTIN Stop: 03/24/20 06:29 Last Admin: 02/23/20 06:28 Dose: 100 mls/hr Documented by: Famotidine 20 mg/ Syringe 5 mls @ 2.5 mls/min IV BID CONSTANTIN Stop: 03/24/20 08:59 Last Admin: 02/23/20 09:16 Dose: 2.5 mls/min Documented by: Piperacillin Sod/Tazobactam (Sod 3.375 gm/ Dextrose) 115 mls @ 28.75 mls/hr IV ONE ONE; Protocol Stop: 02/23/20 14:59 Last Admin: 02/23/20 11:08 Dose: 28.8 mls/hr Documented by: Miscellaneous Information (Consult) 1 ea N/A UD PRN PRN Reason: Consult Stop: 03/24/20 06:07 Morphine Sulfate (Morphine Sulfate) 2 mg IV Q3H PRN PRN Reason: Severe Pain Stop: 03/08/20 06:12 Ondansetron HCl (Zofran) 4 mg IV Q6H PRN PRN Reason: Nausea Stop: 03/24/20 05:02 Resident Activity Tracking Resident Involvement: Resident Care Provided Care Provided: Adult Hospital Medicine
--- NOTE | 2020-02-23 14:09 | History & Physical Report ---
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 Beliefs That Will Affect Care: None Current Living Situation: Spouse Other Information That Helps Us Care for You: No Feels Safe at Home: Yes Safety Concerns: Feels Safe At This Time Smoking Status: Never smoker Do You Dip or Chew Tobacco: No ; Second Hand Exposure: No ; Tobacco Cessation Education Requested by Patient: No Hx Alcohol Use: Yes Alcohol type: wine Hx Substance Use: No Physical Exam Constitutional: well developed and well nourished Respiratory: normal respiratory effort Cardiovascular: Rate/Rhythm: regular rate and regular rhythm Gastrointestinal (Abdomen): Percussion/Palpation: + abdomen tender Results & Data Vital Signs (Past 12 Hours) Vital Signs Temp Pulse Resp BP Pulse Ox 02/23/20 13:00 45 L 20 90/74 L 98 02/23/20 11:00 51 L 17 110/59 L 99 02/23/20 07:28 36.4 C L 47 L 18 96/53 L 100 02/23/20 07:00 43 L 18 96/53 L 98 02/23/20 05:02 112/70 02/23/20 02:20 51 L 18 134/59 L 99 Code Status & VTE Plan VTE Prophylaxis Plan VTE Prophylaxis will be ordered: No
--- NOTE | 2020-02-23 14:14 | Anesthesiology Consultation ---
Date of Service February 23, 2020 Assessment & Plan (1) Encounter for pre-operative examination: Chart Review Chart Review: Acceptable Risk for Surgery and Patient NOT seen in Pre Admission Testing Consults Requested none History Surgery Operation Date: 02/23/20 07:00 Proposed Procedures p Endoscopic Retrograde Cholangiopancreatogram - Tino Lepe Height/Weight Height: 5 ft 2 in Weight: 61.6 kg Allergies Allergy/AdvReac Type Severity Reaction Status Date / Time No Known Drug Allergies Allergy Unknown Verified 02/23/20 01:26 Medications Home Medications Medication Instructions Recorded Confirmed Last Taken multivitamin 1 cap PO DAILY #30 cap 02/09/19 02/23/20 Unknown Active Medications Generic Name Dose Route Start Last Admin Trade Name Freq PRN Reason Stop Dose Admin Potassium Chloride/Sodium Chloride 20 meq in 1,000 mls @ 100 mls/hr 02/23/20 06:30 02/23/20 06:28 Normal Saline W/20 Meq Kcl IV 03/24/20 06:29 100 mls/hr .Q10H CONSTANTIN Administration Famotidine 20 mg/ Syringe 5 mls @ 2.5 mls/min 02/23/20 09:00 02/23/20 09:16 IV 03/24/20 08:59 2.5 mls/min BID CONSTANTIN Administration Piperacillin Sod/Tazobactam 115 mls @ 28.75 mls/hr 02/23/20 11:00 02/23/20 11:08 Sod 3.375 gm/ Dextrose IV 02/23/20 14:59 28.8 mls/hr ONE ONE Administration Protocol NPO Date Last Intake of Fluids: 02/22/20 Time Last Intake of Fluids: 18:00 Date Last Intake of Solids: 02/22/20 Time Last Intake of Solids: 18:00 Past Medical History Medical History Thalassemia minor (Acute) Exercise / Class Metabolic Activity II 4-5 Yardwork/Stairs/Walk up hill Past Surgical History Surgical History Hx of cholecystectomy Past Anesthesia History No Hx of Anesthesia Complications and No Family Hx of Anesthesia Complications History of PONV No Hx of PONV and No Hx of Motion Sickness Social History Smoking Status: Never smoker Do You Dip or Chew Tobacco: No Hx Alcohol Use: Yes Alcohol type: wine alcohol intake frequency: holidays/special occasions only Hx Substance Use: No Physical Exam Vital Signs Last Vital Signs Temp 36.4 C L 02/23/20 07:28 Pulse 45 L 02/23/20 13:00 Resp 20 02/23/20 13:00 BP 90/74 L 02/23/20 13:00 Pulse Ox 98 02/23/20 13:00 Testing Laboratory Results 02/23/20 07:37 02/23/20 07:37 PT 11.4 Seconds (9.0-12.0) 02/23/20 01:25 INR 1.1 (0.9-1.1) 02/23/20 01:25 APTT 25.8 Seconds (21.0-31.0) 02/23/20 07:37 Urine Color Dark Yellow 02/23/20 01:25 Urine Appearance Cloudy (Clear) A 02/23/20 01:25 Urine pH 7.5 (4.5-7.5) 02/23/20 01:25 Ur Specific Home 1.016 (1.000-1.030) 02/23/20 01:25 Urine Protein Negative (Negative) 02/23/20 01:25 Urine Glucose (UA) Negative (Negative) 02/23/20 01:25 Urine Ketones Negative (Negative) 02/23/20 01:25 Urine Nitrite Negative (Negative) 02/23/20 01:25 Ur Leukocyte Esterase Negative (Negative) 02/23/20 01:25 Urine WBC (Auto) 1-5 /hpf (0-5) 02/23/20 01:25 Urine RBC (Auto) 0-4 /hpf (0-4) 02/23/20 01:25 U Hyaline Cast (Auto) 1-5 /lpf (0-5) 02/23/20 01:25 U Epithel Cells (Auto) 10-20 /lpf (0-5) H 02/23/20 01:25 Urine Bacteria (Auto) Negative (Negative) 02/23/20 01:25 02/23/20 02:17 POC Ur Test NEG Electrocardiogram Date: 02/23/20 Findings: + SB @ (49) Sinus bradycardia Incomplete right bundle branch block Borderline ECG When compared with ECG of 15-AUG-2016 20:14, No significant change was found Confirmed by Guerrero Garcia ([id number]) on 02/23/2020 11:41:10 AM Echocardiogram Date: 02/24/19 EF: 55-60% LV Function: normal RWMA: + none Valvular Disease: + MR
--- NOTE | 2020-02-23 14:31 | Consultation Report ---
DATE OF CONSULTATION: 02/23/2020 REASON FOR EVALUATION: Right upper quadrant pain and abnormal liver tests. HISTORY OF PRESENT ILLNESS: The patient is a 49-year-old with a previous cholecystectomy in 2016 for non stone gallbladder disease. For the last 2 days, the patient has been experiencing a sharp stabbing right upper quadrant pain coming in colicky waves. It started after eating a meal. She has been nauseated, but no episodes of vomiting. Upon arrival at the hospital, she was noted to have transaminases over 1000. Alkaline phosphatase was 142, bilirubin 3.6. Ultrasound showed a common bile duct of 1.2 cm, but no stones. An MRCP; however, did suggest a possible 3 mm common bile duct stone and GI was consulted. PAST MEDICAL HISTORY: Remarkable for cholecystectomy. MEDICATIONS: Multiple vitamin. ALLERGIES: None. FAMILY HISTORY: Noncontributory. SOCIAL HISTORY: The patient uses minimal alcohol. Does not smoke. PHYSICAL EXAMINATION: GENERAL: The patient is in no acute distress. LUNGS: Clear. HEART: Showed a normal S1 and S2. Regular rate and rhythm. ABDOMEN: Shows some tenderness in the epigastric and right upper quadrant. IMPRESSION AND PLAN: The patient has a possible common duct stone. Informed consent has been obtained and will proceed with an ERCP later today. She will continue on her antibiotics prophylactically.
[2020-02-23] MEDS ORDERED: fentaNYL citrate 100 MCG/2 ML VIAL IV PRN (14:33)
[2020-02-23] MEDS ORDERED: ATROPINE SULFATE 0.1 MG/ML 10ML SYR IV PRN (14:33)
[2020-02-23] MEDS ORDERED: ePHEDrine sulfate 50 MG/ML AMP IV PRN (14:33)
[2020-02-23] MEDS ORDERED: HYDROmorphone INJ 1 MG/ML SYRINGE IV PRN (14:33)
--- NOTE | 2020-02-23 15:44 | GI REPORT ---
Patient Name: Karina Robertson Procedure Date: 02/23/2020 2:15 PM Date of : 1970 Admit Type: Inpatient Age: 49 Gender: Female Attending MD: Tino Lepe MD Procedure: ERCP Providers: Tino Lepe MD Referring MD: Anum Sargent Indications: Abnormal abdominal MRI, Elevated liver enzymes Medicines: General Anesthesia Complications: No immediate complications. Estimated Blood Loss: Estimated blood loss: none. Procedure: Pre-Anesthesia Assessment: - Prior to the procedure, a History and Physical was performed, and patient medications, allergies and sensitivities were reviewed. The patient's tolerance of previous anesthesia was reviewed. - The risks and benefits of the procedure and the sedation options and risks were discussed with the patient. All questions were answered and informed consent was obtained. After obtaining informed consent, the scope was passed under direct vision. Throughout the procedure, the patient's blood pressure, pulse, and oxygen saturations were monitored continuously. The scope was introduced through the mouth, and advanced to the duodenum and used to inject contrast into the bile duct and ventral pancreatic duct. The ERCP was accomplished without difficulty. The patient tolerated the procedure well. Findings: The major papilla was normal. The bile duct was deeply cannulated with the short-nosed traction sphincterotome. Contrast was injected. I personally interpreted the bile duct images. There was brisk flow of contrast through the ducts. Image quality was excellent. Contrast extended to the bifurcation. A cholecystectomy had been performed. A wire was passed into the ventral pancreatic duct. The biliary sphincterotomy was extended to a total of 4 mm in length with a short nose sphincterotome using ERBE electrocautery. There was no post-sphincterotomy bleeding. To determine the sphincterotomy size, the biliary tree was swept with a 10 mm balloon starting at the bifurcation. The intra-hepatic and extra-hepatic biliary duct system was normal. Impression: - The major papilla appeared normal. - The cholangiogram was normal. - The patient has had a cholecystectomy. - A biliary sphincterotomy was performed. Recommendation: - Return patient to [facility] for ongoing care. Tino Lepe M.D. Tino Lepe MD 02/23/2020 3:44:26 PM This report has been signed electronically. Note Initiated On: 02/23/2020 2:15 PM Number of Addenda: 0 I attest to the content of the Intraoperative Record and orders documented therein, exceptions below {[id number]}
--- NOTE | 2020-02-23 16:12 | Anesthesiology Progress Note ---
Date of Service February 23, 2020 Anesthesia Post Procedure Vital Signs Vital Signs: Temp Pulse Pulse Resp BP BP Pulse Ox 02/23/20 16:05 71 16 135/74 100 02/23/20 15:55 56 L 16 138/73 100 02/23/20 15:45 36.4 C L 60 20 143/85 H 98 02/23/20 14:26 36.6 C 51 L 18 114/48 L 98 02/23/20 13:00 45 L 20 90/74 L 98 02/23/20 11:00 51 L 17 110/59 L 99 02/23/20 07:28 36.4 C L 47 L 18 96/53 L 100 02/23/20 07:00 43 L 18 96/53 L 98 02/23/20 05:02 112/70 02/23/20 02:20 51 L 18 134/59 L 99 02/23/20 01:06 36.9 C 63 16 137/77 95 Pain Intensity Abdomen: Pain Intensity: 9 Transfer of Care Handoff Completed per policy Notes Mental Status: alert / awake / arousable and participated in evaluation Patient Amnestic to Procedure: Yes Nausea / Vomiting: adequately controlled Pain: adequately controlled Airway Patency, RR, SpO2: stable & adequate BP & HR: stable & adequate Hydration State: stable & adequate Anesthetic Complications: no major complications apparent and Pt Satisfied with anesthetic care
--- NOTE | 2020-02-23 16:14 | Progress Notes ---
DATE: 02/23/2020 The patient underwent an ERCP today in the Operating Room for suspected common bile duct stone on MRCP with right upper quadrant pain and abnormal liver tests. ERCP was performed and her bile and pancreatic ducts were injected. The bile duct was slightly dilated up to about 8-10 mm following her cholecystectomy 4 years ago. There were no obvious filling defects on contrast injection. A 4 mm sphincterotomy was performed successfully without bleeding. The duct was swept 3 or 4 times with a 10 mm balloon. No filling defects were retrieved and the patient tolerated the procedure well. IMPRESSION: The patient's ERCP did not reveal any stones. Sphincterotomy was performed. The patient will undergo additional tests of her liver. With her transaminases over 1000, you need to consider a toxin exposure, ischemia or acute viral hepatitis. Hepatitis B and C serologies are negative. Hepatitis A is pending. Plan on checking for mono, tissue transglutaminase, ENIO, alpha fetoprotein and iron studies.
--- NOTE | 2020-02-23 16:27 | Fluoroscopy Report ---
INTRAOPERATIVE RADIOGRAPHS CLINICAL HISTORY: ERCP. Fluoroscopy time: 56 seconds. FINDINGS: 3 spot fluoroscopic views of the right quadrant from an ERCP procedure are correlated with MRCP dated 02/23/2020. The initial image shows contrast opacification of the common bile duct which ap pears mildly dilated. A balloon sweep of the common duct is performed. IMPRESSION: Intraoperative ERCP images as above. See operative report for detailed findings. Electronically signed by: Talon Andujar M.D. 02/23/2020 4:26 PM
[2020-02-23 18:12] LABS: Iron 83 mcg/dl (35-150); Total Iron Binding Capacity 251 mcg/dl (250-450)
[2020-02-23] MEDS: PIPERACILLIN/TAZOBACTAM 3.375 GM in DEXTROSE 5% 100 ML IV SCH (18:42)
--- NOTE | 2020-02-23 19:17 | Billing Data ---
Date of Service February 23, 2020 Coding Level of Care Code 58826 Initial Inpt Care Lvl 2
[2020-02-24] MEDS: NSS + 20MEQ KCL 20 MEQ/1,000 ML BAG IV SCH (03:35)
[2020-02-24] MEDS: PIPERACILLIN/TAZOBACTAM 3.375 GM in DEXTROSE 5% 100 ML IV SCH ×2 (03:56→11:17)
[2020-02-24 07:46] LABS: Basophils # (auto) 0.03 K/uL (0-0.2); Basophils % (auto) 0.5 %; Eosinophils # (auto) 0.12 K/uL (0-0.5); Eosinophils % (auto) 1.8 %; Hematocrit (blood only) 31.1 % (37-47); Hemoglobin 9.9 g/dL (12.0-16.0); Immature Granulocytes # (auto) 0.01 K/uL (0.00-0.02); Immature Granulocytes % (auto) 0.2 %; Lymphocytes # (auto) 1.25 K/uL (1.2-3.4); Lymphocytes % (auto) 19.1 %; Mean Corpuscular Hemoglobin 21.2 pg (25-34); Mean Corpuscular Hgb Conc 31.8 g/dL (32-36); Mean Corpuscular Volume 66.7 fL (80-100); Monocytes # (auto) 0.46 K/uL (0.11-0.59); Neutrophils # (auto) 4.69 K/uL (1.4-6.5); Neutrophils % (auto) 71.4 %; Platelet Count 161 K/uL (130-400); RDW Coefficient of Variation 16.3 % (11.5-14.5); RDW Standard Deviation 39.3 fL (36.4-46.3); Red Blood Count 4.66 M/uL (4.2-5.4); White Blood Count 6.56 K/uL (4.8-10.8)
[2020-02-24 07:53] LABS: Partial Thromboplastin Time 26.8 Seconds (21.0-31.0)
[2020-02-24] MEDS: FAMOTIDINE 20 MG in SYRINGE 3 ML IV SCH (08:05)
[2020-02-24 08:12] LABS: Albumin Level 3.1 gm/dl (3.4-5.0); BUN Creatinine Ratio 10.6 (10-20); Calcium 8.2 mg/dl (8.5-10.1); Creatinine Clr Calc Pharmacy 101.3 ml/min; Est GFR (African American) 125.4; Est GFR (Non-African American) 108.2; Hypochromasia Present; Magnesium 1.6 mg/dl (1.8-2.4); Poikilocytosis Present; Potassium 3.9 mmol/L (3.5-5.1)
[2020-02-24 08:20] LABS: Bilirubin,Total 1.9 mg/dl (0.2-1); Globulin 3.1 gm/dl (2.5-4.0); Total Protein 6.2 gm/dl (6.4-8.2)
--- NOTE | 2020-02-24 08:41 | Anesthesiology Progress Note ---
Date of Service February 24, 2020 Anesthesia Post Procedure Vital Signs Vital Signs: Temp Pulse Resp BP Pulse Ox 02/24/20 07:23 37.1 C 50 L 18 119/71 95 02/23/20 23:33 37.1 C 60 18 116/65 94 02/23/20 16:34 36.7 C 48 L 16 130/77 95 02/23/20 16:15 36.5 C 52 L 16 117/71 100 02/23/20 16:05 71 16 135/74 100 02/23/20 15:55 56 L 16 138/73 100 02/23/20 15:45 36.4 C L 60 20 143/85 H 98 02/23/20 14:26 36.6 C 51 L 18 114/48 L 98 02/23/20 13:00 45 L 20 90/74 L 98 02/23/20 11:00 51 L 17 110/59 L 99 Pain Intensity Abdomen: Pain Intensity: 9 Notes Mental Status: alert / awake / arousable and participated in evaluation Patient Amnestic to Procedure: Yes Nausea / Vomiting: adequately controlled Pain: adequately controlled Airway Patency, RR, SpO2: stable & adequate BP & HR: stable & adequate Hydration State: stable & adequate Anesthetic Complications: no major complications apparent and Pt Satisfied with anesthetic care
[2020-02-24 10:04] LABS: Hepatitis A Antibody IgM NON-REACTIVE (NON-REACTIVE); Hepatitis B Core Antibody IgM NON-REACTIVE (NON-REACTIVE)
[2020-02-24] MEDS ORDERED: MAGNESIUM SULFATE / D5W 1 GM/100 ML BAG IV ONE (11:15)
--- NOTE | 2020-02-24 13:07 | Progress Notes ---
DATE: 02/24/2020 SUBJECTIVE: The patient reports a little bit of epigastric discomfort today, although she is tolerating clear liquids. Her ERCP yesterday was negative for any common duct stones. Sphincterotomy and balloon sweeps were performed. Today, her lipase is elevated from a baseline of 74 to 2585, although she has no loss of appetite. Her liver profile showed a bilirubin going from 4.7 to 1.9, AST is down to 464, ALT 1384, alkaline phosphatase 135. Her hepatitis A, B and C serologies and mono were negative. Iron profile was negative. Pending at this time are her ENIO, alpha 1 antitrypsin level, tissue transglutaminase and CMV serologies. PHYSICAL EXAMINATION: VITAL SIGNS: Her blood pressure is 119/71, pulse 50. She is afebrile with a temperature of 37.1. Room air saturation is 95%. ABDOMEN: Shows a little bit of tenderness in the epigastric area. No mass or rebound. IMPRESSION AND PLAN: The patient has elevated liver tests, not from a common duct stone. She has a little bit of post-ERCP pancreatitis, but is tolerating clear liquids well. I plan on advancing her to a low-fat diet and awaiting the remainder of her liver tests. I suspect that she probably had an infection that initiated the abnormal liver tests and right upper quadrant pain, and hopefully, that will resolve with time, but she will need to be followed as an outpatient. The post-ERCP pancreatitis also should resolve within a few days on a low-fat diet.
--- NOTE | 2020-02-24 14:12 | Discharge Summary ---
Date of Service February 24, 2020 Admission HPI Per Admitting Provider 49 yo healthy F with hx cholecystectomy presenting to ED with RUQ abdominal pain x 2 days. Describes the pain as sharp and stabbing, similar to what her gallstone attacks felt like with radiation to her back. Pain starts after eating a meal, though unsure at what interval after eating. She has also been nauseous, had decreased appetite though no episodes of vomiting. Denies constipation, diarrhea. Denies any new medications, exposures. Used 3 ibuprofen to try to control pain, no tylenol use. Denies family history of autoimmune disorders. Principal Diagnosis Transaminitis Discharge Exam Constitutional WD/WN, vitals as above Eyes PERRL, conjunctivae normal, anicteric sclerae Respiratory normal respiratory effort, lungs clear to auscultation Cardiovascular Rate/Rhythm: regular rate and regular rhythm Heart Sounds: normal S1 and normal S2; no gallop, no murmur and no cardiac rub Vessels: no JVD Gastrointestinal (Abdomen) Inspection/Auscultation: normal bowel sounds; abdomen not distended Percussion/Palpation: + abdomen tender (epigastric) and abdomen soft; no hepatosplenomegaly Musculoskeletal no cyanosis or clubbing, extremities motor strength 5/5 Skin no jaundice Psychiatric A+Ox3, euthymic affect Discharge Data Allergies Allergy/AdvReac Type Severity Reaction Status Date / Time No Known Drug Allergies Allergy Unknown Verified 02/23/20 01:26 Consultations 02/23/20 03:33 ED Decision to Admit Stat 02/23/20 06:17 Consult Gastroenterology Routine Procedures Performed Operation Date: 02/23/20 07:00 Actual Procedures p Endoscopic Retrograde Cholangiopancreatogram - Tino Lepe Ordered Studies 02/23/20 02:09 US abdomen limited Urgent 02/23/20 03:42 MR MRCP Urgent 02/23/20 14:45 FL ERCP biliary ductal Routine Hospital Course (1) Epigastric abdominal pain: 49 yo F with hx cholecystectomy admitted for worsening abdominal pain x2 days. RUQ/Epigastric abdominal pain with obstructive biliary ds: - RUQ US: fatty liver infiltration, bile duct dilation to 1.2 cm, no choledocholithiasis - MRCP demonstrated 3mm filling defect consistent with common bile duct calculus - GI consulted: ERCP demonstrated normal appearing major papilla, normal ch olangiogram; performed biliary sphincterotomy - s/p ERCP Lipase 2585 - tolerated PO well with no epigastric pain - Transaminitis on admission: AST 1598, ALT 2007, Alk phos 142; - on recheck this AM: AST 464, ALT 1384, Alk phos 135; - total bilirubin 3.6 on admission, 1.9 this AM - repeat Lipase, Hepatic Function tests in one week Transaminitis: - likely from obstructive biliary ds. - no hx blood transfusions, IVDU - Hepatitis B antigen negative, Hepatitis C negative; Hepatitis A IgM negative - ENIO, CMV, [id number], and tissue transglutaminase pending Total Time Total Time Spent Total Time Spent (In Minutes): 30 Discharge Plan Discharge Items Patient Disposition: Home - Self-Care Reason For Visit: ABDOMINAL PAIN Discharge Diagnosis: Epigastric abdominal pain Activity: Per Instructions section Non-emergency contact: Primary Care Provider and Belt Buckle Maker Call non-emergency contact if: you have any medication questions, your symptoms worsen and you have a fever Follow-up/Referrals: Niecy Aldridge MD [Primary Care Provider] - 02/26/20 11:20 am (If you need to change this appointment, please call [phone].) Diet: Low Fat Addtl Attending Provider Instructions: You were seen and admitted for concern of returned abdominal pain with elevated liver enzymes. During this admission you had imaging that demonstrated concern for a blockage of part of the drain of your liver, and had a procedure to look at the drain that did not demonstrate this blockage. Following this procedure you had improvement of your liver enzymes closer to their normal values. At this time you still have a couple tests that are pending looking for the source of your abdominal pain and the elevated enzymes that you should follow-up with your PCP to continue to monitor. Pending Studies at Discharge: Yes Stand-Alone Forms: My [facility] [employer], Smoking Cessation Medications and DC Order Prescriptions: Continued multivitamin capsule 1 cap PO DAILY Qty: 30 RF: 0 Discharge Orders: Discharge Order (Routine); Ordered 02/24/20 Ordered By: Vahid Malloy Admission Data Admit Date/Time: 02/23/20 04:13 Attending Provider: Anum Sargent Admit Provider: Joaquina Cantor Primary Care Provider: Niecy Aldridge V. Other Providers: Cj Pedro ; Tino Lepe Other Interventions: Discharge Summary Assessment (RN) Last Done: 02/24/20 14:26 DC Date/Time DO NOT enter until pt leaves facility: 02/24/20 16:00 Supervising Physician Co-Signing Physician Notes Resident Physician Supervision Note: I independently interviewed and examined the patient and verified the villanueva history and physical, reviewed labs and image studies, discussed the case with the resident Dr. Malloy and agree with the findings and care plan. Resident Activity Tracking Resident Involvement: Resident Care Provided Care Provided: Adult Hospital Medicine
[2020-02-25 23:44] LABS: Alpha 1 Antitrypsin 156 mg/dL (83-199); Anti Nuclear Antibody Screen NEGATIVE (NEGATIVE); CMV IgM Antibody <30.00 AU/mL; Transglutaminase, Tissue IgA 1 U/mL
== END 2020-02-24 16:00 | disposition home or self-care (01) | DRG 446 ==
LOC: ED 01:02 → SUATTDRO 04:13 → EDINP 04:13 → 2N 16:37